=== PATIENT | male | born 1960 | race American Indian/Alaskan Native ===

== ENCOUNTER 2017-09-15 12:02 | Emergency (ER) | payer BC ==
--- NOTE | 2017-09-15 13:09 | Emergency Department Report ---
Chief Complaint: Rectal Pain Stated Complaint: BLOOD IN STOOL Time Seen by Provider: 09/15/17 12:45 - HPI History of Present Illness: 57 yo AA M presents to the ED with the complaint of rectal pain and rectal bleeding with stools. He has a history of this but says it became "severe" yesterday. He has seen a GI doc about 1.5 months ago for this and was scheduled for a colonoscopy but did not get it done. No abdominal pain. he does have a hx of external hemorrhoids but says this feels different. - ROS Review of Systems: Positive for rectal pain and bleeding Negative for abdominal pain, fever, n/v - Exam Vital Signs: Vital Signs 09/15/17 12:07 Temperature 97.7 F Pulse Rate 90 Respiratory 17 Rate Blood Pressure 141/98 O2 Sat by Pulse 100 Oximetry Physical Exam: No tenderness to palpation of the abdomen. Heart, lung and bowel sounds are normal to auscultation. No abdominal distention and abdomen is soft. MSE screening note: Focused history and physical exam performed. Due to findings the following was ordered: I have ordered a CBC, BMP, PT/PTT. he will need a rectal examination. ED Disposition for MSE Condition: Stable Referrals: PRIMARY CARE, [Primary Care Provider] - 3-5 Days
[2017-09-15 13:32] LABS: Hematocrit 38.1 % (35.5-45.6); Hemoglobin 12.9 gm/dl (11.8-15.2); Mean Corpuscular HGB Conc 34 % (32-34); Mean Corpuscular Hemoglobin 32 pg (28-32); Mean Corpuscular Volume 95 fl (84-94); Platelet Count 371 K/mm3 (140-440); Red Blood Count 4.02 M/mm3 (3.65-5.03); Red Cell Distribution Width 15.8 % (13.2-15.2)
[2017-09-15 13:41] LABS: INR 0.83 (0.87-1.13)
[2017-09-15 13:42] LABS: Partial Thromboplastin Time 22.6 Sec. (24.2-36.6)
[2017-09-15 13:51] LABS: BUN/Creatinine Ratio 14; Blood Urea Nitrogen 10 mg/dL (9-20); Calcium 9.5 mg/dL (8.4-10.2); Hemolysis Index 8
[2017-09-15] MEDS ORDERED: NORCO 5/325 PO ONE (15:07)
--- NOTE | 2017-09-15 15:07 | Emergency Department Report ---
ED GI Bleed HPI - General Chief complaint: Rectal Pain Stated complaint: BLOOD IN STOOL Time Seen by Provider: 09/15/17 12:45 Source: patient Mode of arrival: Ambulatory Limitations: No Limitations - History of Present Illness Initial comments: 57-year-old male asked medical history smoker presents with complaint of intermittent rectal pain and bloody stools for several months. Patient states he was seen by gastroenterologists for this one month ago with [facility] and was referred to have an outpatient colonoscopy but did not follow-up. Patient is presenting to the ED with intermittent rectal pain and states that yesterday he passed some blood clots in his stool. Patient denies any abdominal pain nausea or vomiting fever or chills at this time. Denies any dysuria or hematuria or increased urinary frequency. MD complaint: blood on toilet paper, blood streaked stool Onset/Timin -: month(s) Context: hemorrhoids Treatments Prior to Arrival: none - Related Data Previous Rx's Medication Instructions Recorded Last Taken Type Acetaminophen [Acetaminophen TAB] 500 mg PO Q6HR PRN #30 tablet 09/15/17 Unknown Rx Docusate Sodium [Colace CAP] 100 mg PO BID PRN #90 capsule 09/15/17 Unknown Rx PE/Shk Lvr/Mo/Pet,Wh [Preparation 1 applicatio IA TID PRN #1 tube 09/15/17 Unknown Rx H] Allergies Allergy/AdvReac Type Severity Reaction Status Date / Time No Known Allergies Allergy Unverified 09/15/17 12:14 ED Review of Systems ROS: Stated complaint: BLOOD IN STOOL Other details as noted in HPI Constitutional: denies: chills, fever Eyes: denies: eye pain, eye discharge, vision change ENT: denies: ear pain, throat pain Respiratory: denies: cough, shortness of breath, wheezing Cardiovascular: denies: chest pain, palpitations Endocrine: no symptoms reported Gastrointestinal: other (intemrittenrt rectal bleeding with straining during defecation). denies: abdominal pain, nausea, diarrhea Genitourinary: as per HPI. denies: urgency, dysuria Musculoskeletal: denies: back pain, joint swelling, arthralgia Skin: denies: rash, lesions Neurological: denies: headache, weakness, paresthesias Psychiatric: denies: anxiety, depression Hematological/Lymphatic: denies: easy bleeding, easy bruising ED Past Medical Hx - Past Medical History Previous Medical History?: Yes Additional medical history: external hemorrhoids - Surgical History Past Surgical History?: No - Social History Smoking Status: Current Every Day Smoker Substance Use Type: Alcohol - Medications Home Medications: Home Medications Medication Instructions Recorded Confirmed Last Taken Type Acetaminophen [Acetaminophen TAB] 500 mg PO Q6HR PRN #30 tablet 09/15/17 Unknown Rx Docusate Sodium [Colace CAP] 100 mg PO BID PRN #90 capsule 09/15/17 Unknown Rx PE/Shk Lvr/Mo/Pet,Wh [Preparation 1 applicatio IA TID PRN #1 tube 09/15/17 Unknown Rx H] ED Physical Exam - General Limitations: No Limitations General appearance: alert, in no apparent distress - Head Head exam: Present: atraumatic, normocephalic - Eye Eye exam: Present: normal appearance, PERRL, EOMI - ENT ENT exam: Present: mucous membranes moist - Neck Neck exam: Present: normal inspection - Respiratory Respiratory exam: Present: normal lung sounds bilaterally. Absent: respiratory distress - Cardiovascular Cardiovascular Exam: Present: regular rate, normal rhythm. Absent: systolic murmur, diastolic murmur, rubs, gallop - GI/Abdominal GI/Abdominal exam: Present: soft (abdomen soft nontender nondistended), normal bowel sounds - Rectal Rectal exam: Present: deferred, heme (+) stool (negative on LORY but positive on stool guaiac card), hemorrhoids (small 1cm external nonthrobosed hemorrhoid) - Extremities Exam Extremities exam: Present: normal inspection - Back Exam Back exam: Present: normal inspection - Neurological Exam Neurological exam: Present: alert, oriented X3 - Psychiatric Psychiatric exam: Present: normal affect, normal mood - Skin Skin exam: Present: warm, dry, intact, normal color. Absent: rash ED Course Vital Signs 09/15/17 12:07 Temperature 97.7 F Pulse Rate 90 Respiratory 17 Rate Blood Pressure 141/98 O2 Sat by Pulse 100 Oximetry ED Medical Decision Making - Lab Data Result diagrams: 09/15/17 13:13 09/15/17 13:13 - Medical Decision Making A/P: Rectal bleeding chronic, hemorrhoids 1- preperation H cream topical when necessary 2- stool softeners 3- acetaminophen when necessary 4- I emphasized the importance of follow-up with outpatient gastroenterology to the patient. Patient's labs today are unremarkable. He has had this issue for over 6 months and was initially scheduled to have a colonoscopy approximately a month ago but he stated he did not go due to personal reasons. I advised him with chronic rectal bleeding that he should have an outpatient colonoscopy to further evaluate causes of rectal bleeding. Patient appears to have small external hemorrhoid and may have internal hemorrhoids based on history. I explained this to the patient and he stated he would follow-up with referrals that I will give him. Critical care attestation.: If time is entered above; I have spent that time in minutes in the direct care of this critically ill patient, excluding procedure time. ED Disposition Clinical Impression: Rectal pain, Rectal bleeding Hemorrhoids Qualifiers: Hemorrhoid type: first degree Qualified Code(s): K64.0 - First degree hemorrhoids Disposition: TO HOME OR SELFCARE Is pt being admited?: No Does the pt Need Aspirin: No Condition: Stable Instructions: Hemorrhoids (ED), Rectal Bleeding (ED) Prescriptions: Acetaminophen [Acetaminophen TAB] 500 mg PO Q6HR PRN #30 tablet PRN Reason: Pain , Severe (7-10) Docusate Sodium [Colace CAP] 100 mg PO BID PRN #90 capsule PRN Reason: Constipation PE/Shk Lvr/Mo/Pet,Wh [Preparation H] 1 applicatio IA TID PRN #1 tube PRN Reason: Hemorrhoids Referrals: NARENDRA CALDWELL MD [Staff Physician] - 3-5 Days [facility] [Provider Group] - 3-5 Days Forms: Work/School Release Form(ED) Time of Disposition: 15:08
[2017-09-15 15:26] VITALS: BP 150/96
[2017-09-15 15:38] LABS: Band Neutrophils # (Manual) 0.1 K/mm3; Basophils % (Manual) 0 % (0.0-1.8); Eosinophils % (Manual) 0 % (0.0-4.3); Hypochromasia 1+; Platelet Estimate Consistent w Auto; Stomatocytes 1+; Total Cells Counted 100
== END 2017-09-15 15:25 | disposition home or self-care (01) ==
LOC: ED 12:02
DX: K64.0 First degree hemorrhoids (principal); K62.5 Hemorrhage of anus and rectum; F17.200 Nicotine dependence, unspecified, uncomplicated
CPT/HCPCS: 36415; 80048; 82271; 85007; 85025; 85610; 85730; 99283